=== PATIENT | female | born 1950 | race Caucasian/White ===

== ENCOUNTER 2024-07-28 07:15 | Inpatient (IN) ==
[2024-07-17 10:05] LABS: Basophils # (Auto) 0.03 K/mcL (0.00-0.30); Basophils % (Auto) 0.6 % (0.0-2.0); Eosinophils # (Auto) 0.13 K/mcL (0.00-0.70); Eosinophils % (Auto) 2.6 % (0.0-7.0); Hematocrit 40.9 % (34.1-44.9); Hemoglobin 13.5 g/dL (11.2-15.7); Lymphocytes # (Auto) 1.58 K/mcL (1.50-4.80); Lymphocytes % (Auto) 31.2 % (15.5-49.0); Mean Cell Volume 94.2 fL (80.0-100.0); Mean Platelet Volume 8.9 fL (8.8-12.5); Monocytes # (Auto) 0.44 K/mcL (0.10-0.90); Monocytes % (Auto) 8.7 % (1.0-12.0); Neutrophils % (Auto) 56.7 % (38.0-78.0); Platelet Count 245 K/mcL (140-440); RBC 4.34 M/mcL (3.59-5.38); Red Cell Distribution Width 12.7 % (11.5-14.5); WBC 5.1 K/mcL (4.5-11.0)
[2024-07-17 10:12] LABS: INR 0.9 (0.9-1.1)
[2024-07-17 10:26] LABS: ALT/SGPT 15 U/L (<40); AST/SGOT 17 U/L (<32); Albumin 4.4 gm/dL (3.2-5.2); Albumin/Globulin Ratio 2.1 (1.0-2.3); Alkaline Phosphatase 57 U/L (39-117); Bilirubin,Total 0.3 mg/dL (0.1-1.0); Blood Urea Nitrogen 13 mg/dL (8-23); Calcium 9.6 mg/dL (8.6-10.4); Carbon Dioxide 25 mmol/L (22-30); Chloride 103 mmol/L (96-108); Globulin 2.1 gm/dL (2.2-3.7); Glomerular Filtration Rate 95; Glucose 87 mg/dL (70-105); Potassium 3.9 mmol/L (3.3-5.1); Sodium 141 mmol/L (133-145)
[2024-07-17 12:55] LABS: Estimated Average Glucose(eAG) 114 mg/dL; Hemoglobin A1C 5.6 % Hgb (4.0-6.0)
[2024-07-17 13:47] LABS: Appearance,Urine Clear (Clear); Bilirubin,Urine Negative (Negative); Color,Urine Yellow; Glucose,Urine (UA) Negative (Negative); Ketones,Urine Negative (Negative); Leukocyte Esterase,Urine Negative /uL (Negative); Nitrate,Urine Negative (Negative); Protein,Urine Negative (Negative); Urine Blood Trace-intact ery/mcL (Negative); Urine RBC 0 /hpf (0-3); Urine Squamous Epithelial Cell 0 /hpf (0-4); Urine WBC 0 /hpf (0-4); Urobilinogen,Urine Normal
[2024-07-28] MEDS: ACETAMINOPHEN 500 MG TABLET PO SCH (08:39)
[2024-07-28] MEDS: PREGABALIN 75 MG CAPSULE PO SCH (08:40)
[2024-07-28] MEDS: CELECOXIB 200 MG CAPSULE PO SCH (08:40)
[2024-07-28] MEDS: oxyCODONE 10 MG TAB.ER.12H PO SCH (09:47)
[2024-07-28] MEDS ORDERED: fentaNYL 100 MCG/2 ML VIAL ONE (10:03)
[2024-07-28] MEDS ORDERED: KETAMINE 50 MG/ML ML ONE (10:03)
[2024-07-28] MEDS ORDERED: PROPOFOL 200 MG/20 ML VIAL IV ONE (10:03)
[2024-07-28] MEDS ORDERED: TRANEXAMIC ACID 1,000 MG/10 ML VIAL ONE (10:11)
[2024-07-28] MEDS ORDERED: ONDANSETRON 4 MG/2 ML VIAL ONE (10:11)
[2024-07-28] MEDS ORDERED: GLYCOPYRROLATE 0.2 MG/ML VIAL IV ONE ×2 (10:11→12:07)
[2024-07-28] MEDS ORDERED: ROCURONIUM 10 MG/ML ML IV ONE (10:11)
[2024-07-28] MEDS ORDERED: DEXAMETHASONE 10 MG/ML VIAL ONE (10:11)
[2024-07-28] MEDS ORDERED: LIDOCAINE 2% PF 5 ML VIAL ONE (10:11)
[2024-07-28] MEDS ORDERED: MAGNESIUM SULFATE 2 GM/50 ML BAG IV ONE (10:12)
[2024-07-28] MEDS: ceFAZolin 2 GM in DEXTROSE 5% IN WATER 50 ML IV SCH (10:15)
[2024-07-28] MEDS ORDERED: SUGAMMADEX SODIUM 200 MG/2 ML VIAL IV ONE (10:19)
[2024-07-28] MEDS ORDERED: FAMOTIDINE/PF 20 MG/2 ML VIAL IV ONE (10:21)
[2024-07-28] MEDS ORDERED: ROPIVACAINE HCL/PF 30 ML VIAL IJ ONE (11:28)
[2024-07-28] MEDS ORDERED: PHENYLephrine 1 MG/10 ML SYRINGE (ANEST) ONE (11:54)
[2024-07-28] MEDS ORDERED: ePHEDrine 50 MG/ML AMPUL IV ONE (12:07)
[2024-07-28] MEDS ORDERED: LACTATED RINGERS 250 ML IV PRN (12:39)
[2024-07-28] MEDS ORDERED: HYDROmorphone 0.5 MG/0.5 ML SYRINGE IV PRN (12:39)
[2024-07-28] MEDS ORDERED: fentaNYL 100 MCG/2 ML VIAL IV PRN (12:39)
[2024-07-28] MEDS ORDERED: NALOXONE HCL 0.4 MG/ML VIAL IV PRN (12:39)
[2024-07-28] MEDS ORDERED: IPRATROPIUM/ALBUTEROL 3 ML AMPUL.NEB NEB PRN (12:39)
[2024-07-28] MEDS: TRANEXAMIC ACID 1,000 MG/10 ML VIAL IV ONE (13:38)
[2024-07-28] MEDS: METHOCARBAMOL 1,000 MG/10 ML VIAL IV PRN (13:56)
[2024-07-28] MEDS: LACTATED RINGERS 1,000 ML IV SCH (15:14)
[2024-07-28] MEDS: TRANEXAMIC ACID 1,000 MG/10 ML VIAL ONE (15:14)
[2024-07-28] MEDS ORDERED: HYDROmorphone 1 MG/ML SYRINGE IV PRN (15:40)
[2024-07-28] MEDS ORDERED: KETOROLAC 15 MG/ML VIAL IV PRN (15:40)
[2024-07-28] MEDS ORDERED: ACETAMINOPHEN 325 MG TABLET PO PRN (15:40)
[2024-07-28] MEDS: ceFAZolin 1 GM VIAL IV SCH (18:37)
[2024-07-28] MEDS ORDERED: PROMETHAZINE 25 MG TABLET PO PRN (19:51)
[2024-07-28] MEDS: ONDANSETRON 4 MG/2 ML VIAL IV PRN (19:58)
[2024-07-28] MEDS: ONDANSETRON 4 MG/2 ML VIAL ONE (20:02)
[2024-07-29] MEDS: HYDROcodone/APAP 10/325MG TABLET PO PRN (10:29)
== END 2024-07-29 11:20 | disposition home or self-care (01) | DRG 483 ==
LOC: MEDSUR 07:15
PROVIDERS: ADMIT Orthopaedic Surgery; ATTEND Orthopaedic Surgery